=== PATIENT | female | born 1960 | race African-American/Black ===

== ENCOUNTER 2018-12-14 13:17 | Inpatient (IN) | payer MEDICAID ==
[~2018-12-14] VITALS: Ht 167.6 cm; Wt 86.2 kg
[2018-12-14 14:52] LABS: BASOPHILS % 0.7 % (0.0-2.0); EOSINOPHILS % 0.2 % (0.0-5.0); HEMATOCRIT. 35.9 % (36.0-48.0); HEMOGLOBIN. 12.1 g/dL (12.0-16.0); MEAN CORPUSCULAR HEMOGLOBIN 29.1 pg (28.0-32.0); MEAN CORPUSCULAR VOLUME 86.6 fL (81.0-99.0); MEAN PLATELET VOLUME 8.2 fl (7.4-10.4); MONOCYTES % 5.1 % (2.0-8.0); PLATELET 295 x1000/uL (130-400); RED BLOOD CELL COUNT 4.15 mill/uL (4.2-5.4); RED CELL DISTRIBUTION WIDTH 14.3 % (11.6-14.6)
[2018-12-14 14:52] LABS: CLARITY URINE CLEAR (CLEAR); COLOR URINE YELLOW (YELLOW); KETONES URINE NEGATIVE (NEGATIVE); LEUKOCYTE ESTERASE URINE 1+ (NEGATIVE); NITRITE URINE NEGATIVE (NEGATIVE); OCCULT BLOOD URINE NEGATIVE (NEGATIVE); PROTEIN URINE TRACE (NEGATIVE); SPECIFIC GRAVITY URINE 1.017 (1.005-1.030); UROBILINOGEN URINE 0.2 E.U./dL (0.2-1.0)
[2018-12-14 14:58] LABS: CHLORIDE 107 mEq/L (98-107)
[2018-12-14 15:02] LABS: ETHANOL BLOOD < 10 mg/dL
[2018-12-14 15:11] LABS: OPIATES URINE SCREEN NEGATIVE (NEGATIVE)
[2018-12-14 15:12] LABS: *AMPHETAMINES SCREEN URINE NEGATIVE (NEGATIVE); *BARBITURATES SCREEN URINE NEGATIVE (NEGATIVE); *BENZODIAZEPINES SCREEN URINE NEGATIVE (NEGATIVE); *COCAINE SCREEN URINE NEGATIVE (NEGATIVE); CANNABINOID URINE SCREEN NEGATIVE (NEGATIVE); PHENCYCLIDINE URINE SCREEN NEGATIVE (NEGATIVE)
[2018-12-14 15:13] LABS: METHADONE URINE SCREEN NEGATIVE (NEGATIVE)
[2018-12-14 16:15] LABS: PARTIAL THROMBOPLASTIN TIME 21.8 sec (23.4-31.0); PROTHROMBIN TIME 10.4 sec (9.6-11.0)
[2018-12-14] MEDS ORDERED: ASPIRIN 325MG EC TABLET PO ONE (16:30)
[2018-12-14] MEDS ORDERED: IPRATROPIUM/ALBUTEROL 0.5-3(2.5)MG/3ML NEB INH PRN (18:15)
[2018-12-14] MEDS ORDERED: CLONIDINE 0.1MG TABLET PO PRN (18:15)
[2018-12-14] MEDS ORDERED: LORAZEPAM 0.5MG TABLET PO PRN (18:15)
[2018-12-14] MEDS ORDERED: HYDROCODONE/ACETAMINOPHEN 5/325MG TABLET PO PRN (18:15)
[2018-12-14] MEDS ORDERED: DOCUSATE SODIUM 100MG CAPSULE PO PRN (18:15)
[2018-12-14] MEDS ORDERED: ACETAMINOPHEN 325MG TABLET PO PRN (18:15)
[2018-12-14] MEDS ORDERED: ONDANSETRON HCL 4MG/2ML INJ IV PRN (18:15)
[2018-12-14 19:25] LABS: PHOSPHORUS 2.6 mg/dL (2.5-4.9)
[2018-12-14 21:30] VITALS: BP 170/88
[2018-12-15] VITALS: BP 138/77
[2018-12-15 04:00] VITALS: BP 160/81
[2018-12-15 06:27] LABS: BASOPHILS % 0.8 % (0.0-2.0); EOSINOPHILS % 1.7 % (0.0-5.0); HEMATOCRIT. 34.5 % (36.0-48.0); HEMOGLOBIN. 11.6 g/dL (12.0-16.0); LYMPHOCYTES % 38.9 % (20.0-50.0); MEAN CORPUSCULAR HEMOGLOBIN 29.2 pg (28.0-32.0); MEAN CORPUSCULAR VOLUME 86.9 fL (81.0-99.0); MEAN PLATELET VOLUME 8.4 fl (7.4-10.4); MONOCYTES % 8.7 % (2.0-8.0); NEUTROPHILS % 49.9 % (40.0-76.0); PLATELET 284 x1000/uL (130-400); RED BLOOD CELL COUNT 3.97 mill/uL (4.2-5.4); RED CELL DISTRIBUTION WIDTH 14.3 % (11.6-14.6)
[2018-12-15 07:46] LABS: CHLORIDE 108 mEq/L (98-107)
[2018-12-15 08:00] VITALS: BP 154/89
[2018-12-15] MEDS: ASPIRIN 81MG TABLET PO SCH (10:08)
[2018-12-15 10:50] LABS: T4 FREE 1.12 ng/dL (0.76-1.46)
[2018-12-15] MEDS ORDERED: LEVOFLOXACIN 500MG TABLET PO SCH (11:00)
[2018-12-15 11:11] LABS: FOLIC ACID (FOLATE) SERUM 15.2 ng/mL (>5.38)
[2018-12-15 12:00] VITALS: BP 152/93
[2018-12-15 16:00] VITALS: BP 146/88
[2018-12-15] MEDS ORDERED: DEXTROSE 50% WATER 50ML SYRINGE IV PRN (19:15)
[2018-12-15 20:00] VITALS: BP 123/87
[2018-12-15] MEDS ORDERED: ATORVASTATIN CALCIUM 20MG TABLET PO SCH (21:00)
[2018-12-15] MEDS: BLOOD SUGAR DIAGNOSTIC STRIP TEST SCH (21:07)
[2018-12-15] MEDS: INSULIN LISPRO 100 UNITS/ML SUBCUT SCH (21:11)
[2018-12-16] VITALS: BP 127/84
[2018-12-16 04:00] VITALS: BP 132/90
[2018-12-16] MEDS: BLOOD SUGAR DIAGNOSTIC STRIP TEST SCH (06:03)
[2018-12-16] MEDS: INSULIN LISPRO 100 UNITS/ML SUBCUT SCH (06:07)
[2018-12-16 06:50] LABS: EOSINOPHILS % 1.7 % (0.0-5.0); HEMATOCRIT. 36.4 % (36.0-48.0); HEMOGLOBIN. 12.3 g/dL (12.0-16.0); LYMPHOCYTES % 40.1 % (20.0-50.0); MEAN CORPUSCULAR HEMOGLOBIN 29.5 pg (28.0-32.0); MEAN CORPUSCULAR VOLUME 87.1 fL (81.0-99.0); MEAN PLATELET VOLUME 8.4 fl (7.4-10.4); MONOCYTES % 8.5 % (2.0-8.0); NEUTROPHILS % 48.7 % (40.0-76.0); PLATELET 293 x1000/uL (130-400); RED BLOOD CELL COUNT 4.18 mill/uL (4.2-5.4); RED CELL DISTRIBUTION WIDTH 14.3 % (11.6-14.6)
[2018-12-16 07:19] LABS: CHLORIDE 106 mEq/L (98-107)
[2018-12-16 08:00] VITALS: BP 142/91
[2018-12-16] MEDS: ASPIRIN 81MG TABLET PO SCH (08:25)
[2018-12-16 11:38] VITALS: BP 142/91
== END 2018-12-16 12:11 | disposition home or self-care (01) | DRG 47 ==
LOC: ER 13:32 → 8WST 17:27 → ENRESERV 19:59
PROVIDERS: ADMIT Internal Medicine; ATTEND Internal Medicine
DX: G45.9 Transient cerebral ischemic attack, unspecified (principal); N30.90 Cystitis, unspecified without hematuria; E11.9 Type 2 diabetes mellitus without complications; I10 Essential (primary) hypertension; E78.5 Hyperlipidemia, unspecified; E78.00 Pure hypercholesterolemia, unspecified
CPT/HCPCS: 36415; 70544; 70553; 71045; 72141; 72148; 80048; 80061; 80305; 80320; 82607; 82746; 82962; 83036; 83735; 84100; 84439; 84443; 84481; 84484; 93005; 93306; 93880; 97161; 97165; 99285; J1815; G0480